=== PATIENT | male | born 1980 | race Caucasian/White ===

== ENCOUNTER 2018-03-14 14:01 | Inpatient (IN) | payer OTHER ==
[2018-03-14] MEDS ORDERED: DOXYCYCLINE 50 MG CAP PO STA (14:52)
--- NOTE | 2018-03-14 15:02 | ED ---
General Adult HPI - General Chief complaint: Extremity Problem,Nontraumatic Stated complaint: Numbness Source: patient Mode of arrival: ambulatory Limitations: no limitations - History of Present Illness Initial comments: Dictation was produced using [employer] dictation software. please excuse any grammatical, word or spelling errors. Chief Complaint: 37-year-old male with no significant past medical history presents with right lower extremity numbness and weakness. History of Present Illness: Patient is a 37-year-old male who has been experiencing right lower extremity numbness and weakness 7 days. Patient Locally Here At Least Once a Month. On Father's Day Which Is about 8 Weeks Ago Patient Was Walking through His Friend's Garage When They Noticed a Tick on His Back over His Left Trapezius. Patient Reports That There Was a Characteristic Targetoid Rash to the Area. Tick Was Removed. Patient Did Not Think Much of It. 7 Days Ago Patient Noted That He Was Having Faculty with Dorsiflexion and Plantar Flexion of His Right Lower Extremity. He Also Complained of Numbness That Extends from His Mid Thigh Area All the Way down to His Toes. Denies Any Constitutional Symptoms. Patient Has Any Medical History. Denies Any Recent Travel. Denies Any Recent Flulike Symptoms. Past Medical History: [reviewed, none to report] Past Surgical History:[reviewed, none to report] Social History: Regular tobacco, occasional EtOH Family History: reviewed and noncontributory The ROS documented in this emergency department record has been reviewed and confirmed by me. Those systems with pertinent positive or negative responses have been documented in the HPI. All other systems are other negative and/or noncontributory. - Related Data Previous Rx's Medication Instructions Recorded Albuterol Inhaler [Ventolin Hfa 1 - 2 puff INHALATION Q6HR PRN #1 03/15/18 Inhaler] inhaler Doxycycline Monohydrate [Monodox] 100 mg PO Q12HR #28 cap 03/15/18 Allergies Allergy/AdvReac Type Severity Reaction Status Date / Time Penicillins Allergy Unknown Verified 03/14/18 15:26 Childhood Review of Systems ROS Statement: Those systems with pertinent positive or pertinent negative responses have been documented in the HPI. ROS Other: All systems not noted in ROS Statement are negative. Past Medical History Past Medical History: No Reported History History of Any Multi-Drug Resistant Organisms: None Reported Past Surgical History: No Surgical Hx Reported Past Psychological History: No Psychological Hx Reported Smoking Status: Current every day smoker Past Alcohol Use History: Occasional Past Drug Use History: None Reported - Past Family History Father Family Medical History: Chest Pain / Angina, Myocardial Infarction ([place]) Additional Family Medical History / Comment(s): Hasn't spoken to in 3 years. Mother History Unknown: Yes Family Medical History: No Reported History Additional Family Medical History / Comment(s): Does not speak with. General Exam - General Exam Comments Initial Comments: Vitals: Vital signs upon arrival are within acceptable limits PHYSICAL EXAM: General Impression: Alert and oriented x3, not in acute distress HEENT: Normocephalic atraumatic, extra-ocular movements intact, pupils equal and reactive to light bilaterally, mucous membranes moist. Cardiovascular: Heart regular rate and rhythm, S1&S2 audible, no murmurs, rubs or gallops Chest: Lungs clear to auscultation bilaterally, no rhonchi, no wheeze, no rales Abdomen: Bowel sounds present, abdomen soft, non-tender, non-distended, no organomegaly Musculoskeletal: Pulses present and equal in all extremities, no peripheral edema Motor: Power 5/5 bilaterally, no focal deficits noted Neurological: CN II-XII grossly intact, deficit to light touch over the entire right lower extremity extending from the mid thigh area down to the toes, gait ataxia with weakness to plantar flexion and dorsiflexion of the right lower extremity compared to the left. No skin changes noted Skin: Intact with no visualized rashes, scar over left trapezius muscle over the back Psych: Normal affect and mood Limitations: no limitations Course Vital Signs 03/14/18 03/14/18 03/14/18 14:31 16:42 18:14 Temperature 98.6 F Pulse Rate 80 64 77 Pulse Rate [ Right Dorsalis Pedis] Respiratory 20 18 18 Rate Blood Pressure 155/85 134/88 122/67 Blood Pressure [Left Arm] O2 Sat by Pulse 99 95 94 L Oximetry 03/14/18 03/14/18 19:03 19:40 Temperature 98.0 F 98.2 F Pulse Rate 60 Pulse Rate [ 68 Right Dorsalis Pedis] Respiratory 16 18 Rate Blood Pressure 142/92 Blood Pressure 108/79 [Left Arm] O2 Sat by Pulse 98 97 Oximetry Medical Decision Making - Medical Decision Making ED course: 37-year-old male with no significant past medical history presents with chief complaint of right lower extremity weakness and paresthesias. Patient did report a tick that was on his body for approximately one week. He did complain of a targetoid lesion to his left trapezius area. Patient denied any trauma. Vital signs upon arrival are stable. There are focal neurologic deficits of the right lower extremity. Discussed with patient that we would like to perform a lumbar puncture to evaluate his CSF. He states he doesn't have insurance and would like to avoid this test of possible. There are strong suspicion that patient has early disseminated Lyme disease. Laboratory evaluation obtained. Patient was initially refusing lumbar puncture. He was given 1 dose of doxycycline. After the EKG was obtained showing EKG abnormalities discussed with patient that we would like to perform further testing. Patient did consent to further testing. Patient reports having an ALLERGY to penicillin that he was told when he was 6 years old. He does not know if he has a reaction to it discussed with patient that ceftriaxone is indicated at this time however there is slight cross reaction to penicillin. Patient did consent to receiving ceftriaxone. Patient placed on nuclear monitoring technician. Getting findings of hyperacute T waves patient was given calcium. Potassium was returned and found to be within normal limits. No clinical suspicion of acute limb ischemia given that patient has equal pulses and symmetrical capillary Refill to both lower extremities. Patient does have cardiac changes that are felt to be secondary to possible Lyme's carditis. Troponin however is negative. Lumbar puncture was performed after consent. Patient tolerated lumbar puncture procedure well. Patient be admitted to Dr. Aldrich group. Infectious disease also put on consult. EKG interpretation: Ventricular rate 68. Normal sinus rhythm. No W[place] prolongation, no QTC prolongation. There are peaked T waves in the precordial leads indicating hyperacute T waves versus hyperkalemia or electrolyte abnormalities. No ST segment depression to indicate STEMI. - Lab Data Result diagrams: 03/14/18 15:12 03/14/18 15:12 Lab Results 03/14/18 03/14/18 03/14/18 Range/Units 15:12 15:12 15:12 WBC 7.0 (3.8-10.6) k/uL RBC 4.93 (4.30-5.90) m/uL Hgb 15.5 (13.0-17.5) gm/dL Hct 46.3 (39.0-53.0) % MCV 93.8 (80.0-100.0) fL MCH 31.5 (25.0-35.0) pg MCHC 33.6 (31.0-37.0) g/dL RDW 12.9 (11.5-15.5) % Plt Count 171 (150-450) k/uL Neutrophils % 77 % Lymphocytes % 15 % Monocytes % 5 % Eosinophils % 2 % Basophils % 0 % Neutrophils # 5.3 (1.3-7.7) k/uL Lymphocytes # 1.1 (1.0-4.8) k/uL Monocytes # 0.3 (0-1.0) k/uL Eosinophils # 0.1 (0-0.7) k/uL Basophils # 0.0 (0-0.2) k/uL Sodium 140 (137-145) mmol/L Potassium 4.2 (3.5-5.1) mmol/L Chloride 103 (98-107) mmol/L Carbon Dioxide 27 (22-30) mmol/L Anion Gap 10 mmol/L BUN 12 (9-20) mg/dL Creatinine 0.80 (0.66-1.25) mg/dL Est GFR (CKD-EPI)AfAm >90 (>60 ml/min/1.73 sqM) Est GFR (CKD-EPI)NonAf >90 (>60 ml/min/1.73 sqM) Glucose 96 (74-99) mg/dL Calcium 9.2 (8.4-10.2) mg/dL Magnesium 2.1 (1.6-2.3) mg/dL Troponin I (0.000-0.034) ng/mL CSF Tube Number CSF Volume CSF Appearance CSF Color CSF RBC (0-10) u/L CSF Tot Nucleated Cells (0-5) u/L CSF Crenated Cells % CSF Fresh RBCs % CSF Glucose (40-70) mg/dL CSF Total Protein (12-60) mg/dL Lyme Disease IgG/IgM 0.1 Index Lyme Disease Interpret NEGATIVE (NEGATIVE) 03/14/18 03/14/18 Range/Units 15:12 16:42 WBC (3.8-10.6) k/uL RBC (4.30-5.90) m/uL Hgb (13.0-17.5) gm/dL Hct (39.0-53.0) % MCV (80.0-100.0) fL MCH (25.0-35.0) pg MCHC (31.0-37.0) g/dL RDW (11.5-15.5) % Plt Count (150-450) k/uL Neutrophils % % Lymphocytes % % Monocytes % % Eosinophils % % Basophils % % Neutrophils # (1.3-7.7) k/uL Lymphocytes # (1.0-4.8) k/uL Monocytes # (0-1.0) k/uL Eosinophils # (0-0.7) k/uL Basophils # (0-0.2) k/uL Sodium (137-145) mmol/L Potassium (3.5-5.1) mmol/L Chloride (98-107) mmol/L Carbon Dioxide (22-30) mmol/L Anion Gap mmol/L BUN (9-20) mg/dL Creatinine (0.66-1.25) mg/dL Est GFR (CKD-EPI)AfAm (>60 ml/min/1.73 sqM) Est GFR (CKD-EPI)NonAf (>60 ml/min/1.73 sqM) Glucose (74-99) mg/dL Calcium (8.4-10.2) mg/dL Magnesium (1.6-2.3) mg/dL Troponin I <0.012 (0.000-0.034) ng/mL CSF Tube Number 4 CSF Volume 1 CSF Appearance Clear CSF Color Xanthochromic CSF RBC 342 H (0-10) u/L CSF Tot Nucleated Cells 0 (0-5) u/L CSF Crenated Cells 26 % CSF Fresh RBCs 74 % CSF Glucose 66 (40-70) mg/dL CSF Total Protein 83 H (12-60) mg/dL Lyme Disease IgG/IgM Index Lyme Disease Interpret (NEGATIVE) Disposition Clinical Impression: Paresthesia Disposition: ADMITTED IP TO THIS HOSP Condition: Fair Time of Disposition: 18:29
[2018-03-14] MEDS ORDERED: CALCIUM CHLORIDE 1,000 MG in SODIUM CHLORIDE 0.9% 100 ML IVPB STA (15:15)
[2018-03-14 15:27] LABS: Basophils % (A) 0 %; Eosinophils # (A) 0.1 k/uL (0-0.7); Eosinophils % (A) 2 %; HCT 46.3 % (39.0-53.0); HGB 15.5 gm/dL (13.0-17.5); Lymphocytes # (A) 1.1 k/uL (1.0-4.8); Lymphocytes % (A) 15 %; MCH 31.5 pg (25.0-35.0); MCHC 33.6 g/dL (31.0-37.0); MCV 93.8 fL (80.0-100.0); Mean Platelet Volume 7.9; Monocytes # (A) 0.3 k/uL (0-1.0); Monocytes % (A) 5 %; Neutrophils # (A) 5.3 k/uL (1.3-7.7); Neutrophils % (A) 77 %; Platelet Count 171 k/uL (150-450); RBC 4.93 m/uL (4.30-5.90); RDW 12.9 % (11.5-15.5)
[2018-03-14 15:37] LABS: Anion Gap 10 mmol/L; Blood Urea Nitrogen 12 mg/dL (9-20); Calcium 9.2 mg/dL (8.4-10.2); Carbon Dioxide 27 mmol/L (22-30); Chloride 103 mmol/L (98-107); Glucose 96 mg/dL (74-99); Magnesium 2.1 mg/dL (1.6-2.3); Potassium 4.2 mmol/L (3.5-5.1); Sodium 140 mmol/L (137-145)
[2018-03-14] MEDS ORDERED: cefTRIAXone IN SWFI 1,000 MG/10 ML SYRINGE IVP ONE (15:45)
--- NOTE | 2018-03-14 16:08 | CT ---
EXAMINATION TYPE: CT brain wo con DATE OF EXAM: 03/14/2018 COMPARISON: None HISTORY: Right leg numbness CT DLP: 1004.1 mGycm. Automated Exposure Control for Dose Reduction was Utilized. TECHNIQUE: CT scan of the head is performed without contrast. FINDINGS: There is no acute intracranial hemorrhage, mass effect, or midline shift identified. Que stion periventricular white matter patchy low attenuation. The ventricles and sulci are within normal limits in size. Inferior cerebellar tonsillar ectopia is noted. The globes are intact and the visua lized sinuses are clear. IMPRESSION: Question white matter demyelination. Inferior cerebellar tonsillar ectopia. Consider MRI.
--- NOTE | 2018-03-14 16:10 | XR ---
EXAMINATION TYPE: XR chest 2V DATE OF EXAM: 03/14/2018 COMPARISON: NONE HISTORY: Pain, numbness in leg TECHNIQUE: Frontal and lateral views of the chest are obtained. FINDINGS: There is no focal air space opacity, pleural effusion, or pneumothorax seen. The cardiac silhouette size is within normal limits. The osseous structures are intact. There is hyperinflation . Overlying cardiac leads are noted. IMPRESSION: No acute cardiopulmonary process.
[2018-03-14 16:42] VITALS: RESP 18
[2018-03-14] MEDS ORDERED: NALOXONE 0.4 MG/ML 1 ML VIAL IV PRN (17:32)
[2018-03-14] MEDS ORDERED: ACETAMINOPHEN TAB 325 MG TAB PO PRN (17:32)
[2018-03-14] MEDS ORDERED: SODIUM CHLORIDE 0.9% 1,000 ML IV SCH (17:45)
[2018-03-14 17:48] LABS: Glucose,CSF 66 mg/dL (40-70); Total Protein,CSF 83 mg/dL (12-60)
[2018-03-14 17:56] LABS: Appearance,CSF Clear; CSF Tube Number 4
[2018-03-14 17:57] LABS: CSF Tube Volume 1; Nucleated Cells, CSF 0 u/L (0-5); Red Blood Cell, CSF Crenated 26 %; Red Blood Cell, CSF Fresh 74 %; Red Blood Cell,CSF 342 u/L (0-10)
[2018-03-14 19:57] VITALS: BMI 18.4
[2018-03-14] MEDS: HEPARIN SODIUM,PORCINE 5,000 UNIT/ML 1 ML VIAL SQ SCH (23:34)
[2018-03-15] MEDS: HEPARIN SODIUM,PORCINE 5,000 UNIT/ML 1 ML VIAL SQ SCH (08:44)
[2018-03-15 08:50] VITALS: TEMP 96.9
[2018-03-15] MEDS ORDERED: cefTRIAXone IN SWFI 1,000 MG/10 ML SYRINGE IVP SCH (09:00)
[2018-03-15 11:38] VITALS: BP 134/79; PULSE 66
--- NOTE | 2018-03-15 12:51 | P.HPIM ---
History of Present Illness Patient given compensative tingling and numbness in the right lower extremity patient denied any other weakness patient has 5/5 strength in the right lower exudate. Patient had a CAT scan of the head which showed some nonspecific demyelination will obtain an MRI of the head if that is negative patient will be discharged the other significant issue as patient found it take which was on his body in the back upper back for about a week which was removed about a week ago symptoms actually started next today. Patient had a target lesion. Patient had a CSF which she is essentially within normal limits unsure why CSF was obtained since we get the CSF will also do oligoclonal banding. She denied any myalgias or flulike symptoms. Lyme serology was ordered. We'll discharge the patient on doxycycline for prophylaxis for Lyme's disease. Patient is receiving Rocephin here. There is an extremely low possibility of patient having multiple sclerosis as it's pretty uncommon in man. Because of the toes concerning lesions we're obtaining oligoclonal banding and MRI if they're negative patient will be discharged to follow up with the neurology as an outpatient. We'll set up a outpatient follow-up with her primary care physician which she doesn't have. Patient does smoke advised to quit smoking patient is wheezing on exam, patient wanted to be discharged and go home and smoke Review of Systems REVIEW OF SYSTEMS: CONSTITUTIONAL: No fever, no malaise, no fatigue. HEENT: No recent visual problems or hearing problems. Denied any sore throat. CARDIOVASCULAR: No chest pain, orthopnea, PND, no palpitations, no syncope. PULMONARY: No shortness of breath, no cough, no hemoptysis. GASTROINTESTINAL: No diarrhea, no nausea, no vomiting, no abdominal pain. Normoactive bowel sounds. NEUROLOGICAL: No headaches, no weakness. HEMATOLOGICAL: Denies any bleeding or petechiae. GENITOURINARY: Denies any burning micturition, frequency, or urgency. MUSCULOSKELETAL/RHEUMATOLOGICAL: Denies any joint pain, swelling, or any muscle pain. ENDOCRINE: Denies any polyuria or polydipsia. The rest of the 14-point review of systems is negative. Past Medical History Past Medical History: No Reported History History of Any Multi-Drug Resistant Organisms: None Reported Past Surgical History: No Surgical Hx Reported Past Anesthesia/Blood Transfusion Reactions: No Reported Reaction Past Psychological History: No Psychological Hx Reported Smoking Status: Current every day smoker Past Alcohol Use History: Occasional Past Drug Use History: None Reported - Past Family History Father Family Medical History: Chest Pain / Angina, Myocardial Infarction ([place]) Additional Family Medical History / Comment(s): Hasn't spoken to in 3 years. Mother History Unknown: Yes Family Medical History: No Reported History Additional Family Medical History / Comment(s): Does not speak with. Medications and Allergies Home Medications Medication Instructions Recorded Confirmed Type Doxycycline Monohydrate [Monodox] 100 mg PO Q12HR #28 cap 03/15/18 Rx Allergies Allergy/AdvReac Type Severity Reaction Status Date / Time Penicillins Allergy Unknown Verified 03/14/18 15:26 Childhood Physical Exam Vitals: Vital Signs Temp Pulse Pulse Resp BP BP Pulse Ox 03/15/18 11:35 66 134/79 96 03/15/18 08:00 96.9 F L 79 121/75 03/15/18 04:00 74 18 03/15/18 00:00 98 F 74 16 109/58 97 03/14/18 20:00 98.0 F 69 16 105/70 99 03/14/18 19:40 98.2 F 60 18 142/92 97 03/14/18 19:03 98.0 F 68 16 108/79 98 03/14/18 18:14 77 18 122/67 94 L 03/14/18 16:42 64 18 134/88 95 03/14/18 14:31 98.6 F 80 20 155/85 99 Intake and Output 03/14/18 03/15/18 03/15/18 22:59 06:59 14:59 Intake Total 480 310 Balance 480 310 Intake: Intake, IV Titration 70 Amount Calcium Chloride 1,000 mg 20 In Sodium Chloride 0.9% 100 ml @ 100 mls/hr IVPB ONCE STA Rx#:[id number] cefTRIAXone 1,000 mg In 50 Sodium Chloride 0.9% 50 ml @ 100 mls/hr IVPB ONCE STA Rx#:[id number] Oral 480 240 Other: Voiding Method Toilet Toilet # Voids 2 Weight 53.5 kg 56 kg PHYSICAL EXAMINATION: GENERAL: The patient is alert and oriented x3, not in any acute distress. Well developed, well nourished. HEENT: Pupils are round and equally reacting to light. EOMI. No scleral icterus. No conjunctival pallor. Normocephalic, atraumatic. No pharyngeal erythema. No thyromegaly. CARDIOVASCULAR: S1 and S2 present. No murmurs, rubs, or gallops. PULMONARY: Chest is clear to auscultation, no wheezing or crackles. ABDOMEN: Soft, nontender, nondistended, normoactive bowel sounds. No palpable organomegaly. MUSCULOSKELETAL: No joint swelling or deformity. EXTREMITIES: No cyanosis, clubbing, or pedal edema. NEUROLOGICAL: Gross neurological examination did not reveal any focal deficits except numbness in the right leg. SKIN: No rashes. Results CBC & Chem 7: 03/14/18 15:12 03/14/18 15:12 Labs: Abnormal Lab Results - Last 24 Hours (Table) 03/14/18 Range/Units 16:42 CSF RBC 342 H (0-10) u/L CSF Total Protein 83 H (12-60) mg/dL Microbiology - Last 24 Hours (Table) 03/14/18 16:42 CSF Gram Stain - Preliminary Cerebral Spinal Fluid Thrombosis Risk Factor Assmnt - Choose All That Apply Any of the Below Risk Factors Present?: No Other Risk Factors: No Thrombosis Risk Factor Assessment Level: Very Low Risk Assessment and Plan Plan: -Right lower limb numbness unsure of the exact etiology not in an MRI to rule out a stroke and multiple sclerosis oligoclonal banding will be ordered although the testing is negative -Tick bite with a target lesion, probably of early Lyme's cannot be ruled out or giving him couple weeks of doxycycline -Minimal wheezing secondary to bronchospasm from smoking patient will be given as needed albuterol nicotine cessation counseling was provided
--- NOTE | 2018-03-15 12:52 | P.DS ---
Providers Date of admission: 03/14/18 17:32 Attending physician: Johnson Aldrich Consults: 03/14/18 17:34 Consult Physician Routine Consulting Provider: Heydi Rodriguez Consult Reason/Comments: suspicion of early disseminated lymes disease Do you want consulting provider notified?: Yes Primary care physician: Stated None Hospital Course: Please refer to my HPI Patient Condition at Discharge: Fair Plan - Discharge Summary Discharge Rx Participant: No New Discharge Prescriptions: New Doxycycline Monohydrate [Monodox] 100 mg PO Q12HR #28 cap Albuterol Inhaler [Ventolin Hfa Inhaler] 1 - 2 puff INHALATION Q6HR PRN #1 inhaler PRN Reason: Shortness Of Breath Or Wheezing Discharge Medication List Albuterol Inhaler [Ventolin Hfa Inhaler] 1 - 2 puff INHALATION Q6HR PRN #1 inhaler 03/15/18 [Rx] Doxycycline Monohydrate [Monodox] 100 mg PO Q12HR #28 cap 03/15/18 [Rx] Follow up Appointment(s)/Referral(s): Clyde Hanley MD [STAFF PHYSICIAN] - 2 Weeks (Spoke to operator receptionist. Office will call with appointment time.) None,Stated [Primary Care Provider] - 1-2 days Discharge Disposition: HOME SELF-CARE
--- NOTE | 2018-03-15 13:50 | MR ---
EXAMINATION TYPE: MR brain wo/w con DATE OF EXAM: 03/15/2018 COMPARISON: HISTORY: questionable demyelinating lesions TECHNIQUE: Multiplanar, multisequence images of the brain and brainstem is performed without and with IV contras t, utilizing 5.5 mL intravenous Gadavist . FINDINGS: Diffusion weighted images demonstrate no evidence of a recent infarct or other diffusion ab normality. There is no extra-axial fluid collection. In the right frontal white matter there is a fo cus of hyperintensity measuring 5 mm x 4 mm x 5.3 mm, some scattered bilateral frontal white matter h yperintensities are present on inversion recovery and T2-weighted sequences measuring only approximat ania 2-3 mm, approximately 4 on each side axial image 17. Some additional periventricular deep white m atter scattered hyperintensities are present, total approximately 15-20 lesions are present. Largest on the left as on axial image 16, sagittal image 9 and measures approximately 4 mm the posterior left temporal lobe deep white matter. The ventricular system and cisternal spaces are normal in size and appearance. The brain volume is age appropriate. Midline structures demonstrate normal morphology, there is inferior cerebellar tonsillar ectopia note d. The craniocervical junction appears within normal limits. Post contrast images demonstrate no ab normal enhancement. The dural venous sinuses appear patent. The visualized sinuses are remarkable for inflammatory change in the maxillary sinus right greater than left, ethmoid air cells, sphenoid sinu s, and the globes are intact. IMPRESSION: Findings compatible with demyelination, correlate for multiple sclerosis, Lyme disease, v asculitis, hypertension, migraine headaches. Sinus disease. Inferior cerebellar tonsillar ectopia not ed incidentally.
[2018-03-15 15:28] LABS: Lyme IgG/IgM 0.1 Index
--- NOTE | 2018-03-16 06:49 | CONS ---
CONSULTATION DATE OF CONSULTATION: 03/15/2018. REASON FOR CONSULTATION: Lyme disease. HISTORY OF PRESENT ILLNESS: The patient is a 37 year old male, otherwise healthy. Presented to the ER at [facility] with progressive right lower extremity numbness and weakness that had been going on for about a week. The patient did mention that on other days he noticed to have a tick that was stuck on his upper back area and that may have been there for almost a week. The patient noticed to have some irritation of that area, however, the patient unable to scratch it or look at it or remove anything that tick there was deep green to his skin area that was subsequently removed. The patient did not have any symptoms at that time except some irritation to the back area. Subsequently did have slight amount of rash. Later on, a few weeks later, the patient has been having numbness in the right leg followed by having no energy, no strength in his right leg. With these symptoms continue to be getting worse for the last 1 week, the patient presented to the [facility] ER. The patient has been evaluated by the ER physician. The patient did have a CT of the brain which shows questionable white matter demyelination inferior cerebellar tonsillar ectopia consider MRI. The patient did have an LP done which did show a normal white cell count. was slight elevated 34. MRI was suggested. Patient treated with Rocephin. At the time of evaluation early this afternoon, the patient just came back from MRI and was already cleared for discharge by his admitting physician. The patient was insisting on going home. Did mention to me that he has no more weakness. He is able to walk around without any numbness in the leg. The patient denies having any neurological symptoms. Denies having any headache. Denies having any chest pain or shortness of breath. No cough. No vomiting. No abdominal pain. No diarrhea. REVIEW OF SYSTEMS: CONSTITUTIONAL: Positive for weakness. No fever. Eyes: No complaint. ENT no complaint. Respiratory no complaint. Cardiovascular no complaint. Genitourinary no complaint. Gastrointestinal: No complaint. Musculoskeletal as per HPI. Integumentary as per HPI. Psychological no complaint. Endocrine no complaint. Neurologic no complaint. PAST MEDICAL HISTORY: No major illnesses. PAST SURGICAL HISTORY: No surgeries. SOCIAL HISTORY: Current everyday smoker. Occasionally drinks. No drug use. FAMILY HISTORY: Father with history of AL. ALLERGIES: To PENICILLIN, tolerated Rocephin without any problem. MEDICATION: Medications include the patient is currently on Tylenol, Rocephin heparin, Narcan. EXAMINATION: Blood pressure is 121/75 with a pulse of 79, temperature 96.9. He is 96% on room air. General description is a middle aged male up in the bed in no distress. No tachypnea or accessory muscles of respiration use. HEENT: Shows no pallor or scleral icterus. Oral mucosa membranes are dry. No pharyngeal erythema or thrush. Neck trachea is central. No thyromegaly. Lungs unlabored breathing. Clear to auscultation anteriorly. No wheeze or crackles. Heart S1, S2. Regular rate and rhythm. Abdomen soft. No tenderness. No guarding or rigidity. Extremities: No edema of the feet. Skin examination: No rash or mass palpable. Neurological: Patient is awake, alert, oriented times three. Mood and affect normal. Examination of the back with apparently the patient did have a tic bite with minimal redness there. No fluctuation, induration. LABS: Hemoglobin is 15.5, white count of 7.0, BUN of 12, creatinine 0.80. Troponin was negative. CSF for RBC was 342. Glucose of 56 with a protein of 83. CT was suggestive of a demyelinating disease and MRI has been completed which did show findings compatible with demyelination multiple sclerosis and vasculitis, hypertension, migraine headache. DIAGNOSTIC IMPRESSION AND PLAN: Patient admitted to the hospital with numbness and weakness in a patient did have evidence of a cerebellar demyelination on CT as well as the MRI. It would be very unusual to see neurological symptoms in early Lyme's disease. It could be a case of tick paralysis however usually happens while the tick is actually attached to the patient. neurological symptoms and the patient's tick has been removed a couple of weeks ago and currently with no evidence of any tick on clinical examination. PLAN: 1. The patient will be treated with mg twice a day for 2 weeks for possible Lyme disease for the rash, though clinically doubt the symptoms are related to Lyme disease. 2. Await the serology. 3. Patient advised to follow up with Neurology for his abnormal MRI. 4. Encouraged to follow up in the outpatient setting repeated. Thank you for this consultation. KEITH / IJN: [id number] /
== END 2018-03-15 15:26 | disposition home or self-care (01) | DRG 869 ==
LOC: EC 14:01 → 6SEL 17:32
PROVIDERS: ADMIT Internal Medicine; ATTEND Internal Medicine
PROC: 009U3ZX Drainage of Spinal Canal, Percutaneous Approach, Diagnostic (ICD-10-PCS; principal; 2018-03-14)
DX: A69.20 Lyme disease, unspecified (principal); F17.210 Nicotine dependence, cigarettes, uncomplicated; J98.01 Acute bronchospasm; Z71.6 Tobacco abuse counseling; W57.XXXA Bitten or stung by nonvenomous insect and other nonvenomous arthropods, initial encounter; Z82.49 Family history of ischemic heart disease and other diseases of the circulatory system; Z88.0 Allergy status to penicillin
CPT/HCPCS: 36415; 62270; 70450; 70553; 71046; 80048; 82945; 83735; 83916; 84157; 84484; 85025; 86618; 87070; 87205; 87476; 89050; 93005; 96365; 96375; 99285